=== PATIENT | female | born 1980 | race Caucasian/White ===

== ENCOUNTER → 2018-06-17 | Outpatient (CLI) | payer OTHER ==
--- NOTE | 2018-06-17 17:58 | RADIOLOGY IMAGING REPORT ---
FACILITY: [facility] PATIENT NAME: Jerald Gill : 1980 MR: [id number] V: [id number] EXAM DATE: ORDERING PHYSICIAN: RALPH BRAUN TECHNOLOGIST: Location: Patient: Jerald Gill : 1980 Visit/Account:[id number] Date of Sevice: 06/17/2018 VENOUS DOPP LOW RIGHT EXTREMIT ADDITIONAL PERTINENT HISTORY: Right leg pain and swelling. COMPARISON STUDIES: None. FINDINGS: Grayscale compression, duplex and color Doppler interrogation of the right lower extremity deep veins from common femoral vein to proximal calf was performed. The greater saphenous vein in the ipsilater al proximal thigh was evaluated using similar technique. Right lower extremity: Common femoral vein: Negative. Femoral vein: Negative. Deep femoral vein: Negative. Popliteal vein: Negative. Visualized deep calf veins Negative. Greater saphenous vein in the proximal thigh: Negative. Popliteal fossa: Anechoic fluid collection within the posterior medial aspects of the left knee likel y representing a Robins's cyst cyst measuring 1.6 x 3.6 x 8.7 cm. Surrounding soft tissues: Benign appearing mildly enlarged lymph nodes within the right groin likely reactive. IMPRESSION: 1. No evidence of deep venous thrombosis involving the right lower extremity. 2. Findings most consistent with a Robins's cyst cyst involving the right popliteal fossa. Report Dictated By: Ralph Ordonez MD at 06/17/2018 5:52 PM Report E-Signed By: Ralph Ordonez MD at 06/17/2018 5:54 PM WSN:[id number]
== END ==
LOC: US 16:50
PROVIDERS: ATTEND Orthopaedic Surgery
DX: M71.21 Synovial cyst of popliteal space [Baker], right knee (principal)